=== PATIENT | male | born 1985 | race Caucasian/White ===

== ENCOUNTER 2017-09-22 08:39 | Outpatient (CLI) | payer OTHER ==
--- NOTE | 2017-09-22 10:23 | RAD ---
PA AND LATERAL CHEST: Indication: Cough, dysphagia. Comparison: None. IMPRESSION: No acute cardiopulmonary abnormalities. COMMENTS: Lungs are clear. Cardiomediastinal silhouette is normal. No acute osseous abnormalities evident. POS: [facility]
== END 2017-09-22 08:40 | disposition home or self-care (01) ==
LOC: RAD-FRANK 08:39
PROVIDERS: ATTEND Nurse Practitioner Family
DX: R05 Cough (principal)
CPT/HCPCS: 71020